=== PATIENT | female | born 1985 | race Two or more races ===

== ENCOUNTER 2019-07-02 06:54 | Emergency (ER) | payer SELFPAY ==
[~2019-07-02] VITALS: Ht 160 cm; Wt 63.5 kg
[2019-07-02 07:03] VITALS: BP_SYST 150
[2019-07-02 08:55] VITALS: BP_SYST 153
== END 2019-07-02 08:55 | disposition home or self-care (01) ==
LOC: SED 06:54
DX: S83.92XA Sprain of unspecified site of left knee, initial encounter (principal); X50.1XXA Overexertion from prolonged static or awkward postures, initial encounter; Y93.41 Activity, dancing; Y92.89 Other specified places as the place of occurrence of the external cause; Y99.8 Other external cause status
CPT/HCPCS: 73564; 99283